=== PATIENT | male | born 1985 | race Caucasian/White ===

== ENCOUNTER 2016-10-10 13:19 | Emergency (ER) | payer BC ==
--- NOTE | 2016-10-10 13:32 | ER Document Report ---
ED Medical Screen (RME) - General Stated Complaint: TESTICULAR PAIN, SWELLING Mode of Arrival: Ambulatory Information source: Patient Notes: Patient presents to the emergency department with complaints of right testicular pain and swelling that started after that the gym. Pain started at Brady Pisano MD consulted per [facility] guidelines. I have greeted and performed a rapid initial assessment of this patient. A comprehensive ED assessment and evaluation of the patient, analysis of test results and completion of the medical decision making process will be conducted by additional ED providers.
[2016-10-10 15:39] LABS: APPEARANCE,URINE CLEAR; BILIRUBIN,URINE NEGATIVE (NEGATIVE); GLUCOSE, URINE NEGATIVE (NEGATIVE); KETONES,URINE 20 mg/dL (NEGATIVE); LEUKOCYTE ESTERASE,URINE SMALL (NEGATIVE); NITRITE,URINE NEGATIVE (NEGATIVE); PROTEIN,URINE NEGATIVE (NEGATIVE); URINE SPECIFIC GRAVITY 1.019; UROBILINOGEN,URINE NEGATIVE mg/dL (<2.0)
[2016-10-10] MEDS ORDERED: CEFTRIAXONE INJ 250 MG VIAL IM ONE (16:15)
[2016-10-10] MEDS ORDERED: AZITHROMYCIN 1 GM SUSP PACKET PO ONE (16:16)
--- NOTE | 2016-10-10 16:38 | ER Document Report ---
ED GI/ - General Chief Complaint: Testicular Pain Stated Complaint: TESTICULAR PAIN, SWELLING Time seen by provider: 16:34 Mode of Arrival: Ambulatory Information source: Patient Notes: This is a 31-year-old man with a history of ulcerative colitis who presents to the emergency room with right testicle pain. Patient states it gradually came on over the last day. He denies any fever. He denies any penile discharge. The patient does admit to anal sex. He denies any pain with bowel movements. Patient gives a history where he had a urologic procedure 5 years ago in [place] and describes that the urethra was "too narrow". He has not had any follow-up with the urologist since then and has not had any problems. TRAVEL OUTSIDE OF THE [place] IN LAST 30 DAYS: No - HPI Patient complains to provider of: Testicular pain Onset: This morning Timing/Duration: Gradual Quality of pain: Dull Severity at maximum: Moderate Severity in ED: Moderate Pain Level: 2 Context: Lifting Location: Right testicle. No: Chest pain, Pelvis Sexual history: Active Associated symptoms: denies: Blood in emesis, Blood in stool, Chest pain, Chills , Coffee ground emesis, Constipation, Lightheaded Exacerbated by: Walking Relieved by: Denies Similar symptoms previously: No Recently seen / treated by doctor: No - Related Data Allergies/Adverse Reactions: No Known Drug Allergies Allergy (Verified 10/10/16 13:30) Past Medical History - General Information source: Patient - Social History Smoking Status: Never Smoker Chew tobacco use (# tins/day): No Frequency of alcohol use: None Drug Abuse: None Lives with: Alone Family History: Reviewed & Not Pertinent Patient has suicidal ideation: No Patient has homicidal ideation: No - Past Medical History Cardiac Medical History: Reports: None Pulmonary Medical History: Reports: None EENT Medical History: Reports: None Neurological Medical History: Reports: None Endocrine Medical History: Reports: None Renal/ Medical History: Reports: Other - Patient did have a history of a urethral procedure 5 years ago. Denies: Hx Peritoneal Dialysis Malignancy Medical History: Reports None GI Medical History: Reports: Hx Ulcerative Colitis - Ulcerative colitis, Other Musculoskeltal Medical History: Reports None Skin Medical History: Reports None Psychiatric Medical History: Reports: None Traumatic Medical History: Reports: None Infectious Medical History: Reports: None Past Surgical History: Reports: Hx Orthopedic Surgery Review of Systems - Review of Systems Constitutional: denies: Chills, Fever EENT: No symptoms reported Cardiovascular: No symptoms reported Respiratory: No symptoms reported Gastrointestinal: No symptoms reported Genitourinary: See HPI Male Genitourinary: No symptoms reported Musculoskeletal: No symptoms reported Skin: No symptoms reported Hematologic/Lymphatic: No symptoms reported Neurological/Psychological: No symptoms reported Physical Exam - Vital signs Vitals: Temp Pulse Resp BP Pulse Ox 98.1 F 77 16 134/80 H 99 10/10/16 13:34 10/10/16 13:34 10/10/16 13:34 10/10/16 13:34 10/10/16 13:34 Notes: Physical exam: GENERAL: 31-year-old man, alert and oriented 3, no acute distress HEAD: Atraumatic, normocephalic. EYES: Pupils equal round and reactive to light, extraocular movements intact, sclera anicteric, conjunctiva are normal. ENT: TMs normal, nares patent, oropharynx clear without exudates. Moist mucous membranes. NECK: Normal range of motion, supple without lymphadenopathy or JVD. LUNGS: Breath sounds clear to auscultation bilaterally and equal. No wheezes rales or rhonchi. HEART: Regular rate and rhythm without murmurs, rubs or gallops. ABDOMEN: Soft, nontender, he is soft in the right lower quadrant, normoactive bowel sounds. No guarding, no rebound. No masses appreciated. Penis: Left testicle and epididymis normal. No inguinal hernia on the left side. The right testicle is mildly erythematous and mildly swollen. There is some tenderness over the testicle itself and the epididymis. Cremasteric reflex is present. There is no obvious L clapper deformity. There is no inguinal hernia palpable on that side. There is no tenderness in the lower abdomen. Rectal: Patient has no external lesions. There is no prostate enlargement, bogginess or tenderness to palpation. EXTREMITIES: Normal range of motion, no pitting or edema. No clubbing or cyanosis. NEUROLOGICAL: Cranial nerves II through XII grossly intact. Normal speech, normal gait. PSYCH: Normal mood, normal affect. SKIN: Warm, Dry, normal turgor, no rashes or lesions noted. Course - Re-evaluation Re-evalutation: 10/10/16 16:37 Testicular ultrasound shows good blood flow to the testes. Mid stream clean catch urine shows 9 white cells with no bacteria. Awaiting serologies. Ceftriaxone and azithromycin given. 10/10/16 17:55 Note: I've reviewed the ultrasound report with the patient, the urine analysis shows some white cells without bacteria. The patient was given ceftriaxone and azithromycin. The patient looks comfortable right now. He has not experienced any nausea or vomiting. I have advised him to follow up with urologist and I' ve printed out a referral number in town. 10/10/16 18:12 - Vital Signs Vital signs: Temp Pulse Resp BP Pulse Ox 98 F 82 16 123/68 100 10/10/16 18:23 10/10/16 18:23 10/10/16 18:23 10/10/16 18:23 10/10/16 18:23 - Laboratory Laboratory results interpreted by me: 10/10/16 15:05 Urine Ketones 20 H Urine Blood MODERATE H Ur Leukocyte Esterase SMALL H - Diagnostic Test Radiology reviewed: Image reviewed, Reports reviewed - Ultrasound shows good blood flow to the testicle. Discharge - Discharge Clinical Impression: Epididymo-orchitis Condition: Stable Disposition: HOME, SELF-CARE Instructions: Epididymitis ([facility]), Anti-Inflammatory Medication ([facility]), Warm Packs ([facility]), Oral Narcotic Medication ([facility]), Doxycycline ([facility]) Additional Instructions: Recommendations: Rest, scrotal elevation often helps. Ibuprofen for pain. Percocet for pain not relieved by the ibuprofen: See the narcotic instruction sheet. Return to the emergency room for fever, worsening pain. Take antibiotics as prescribed: Drink plenty of fluids with it. It is recommended that you follow-up with a urologist: Call the office tomorrow. Tell them the ER doctor wanted just seen in the next few days. Bring a copy of the ultrasound report and urine analysis with you when you go see that doctor. [facility] [place] [facility] [address] [place], [place] [phone] [place] [facility] [address] [facility]. [place], [place] [phone] Prescriptions: Doxycycline Hyclate 100 mg PO BID #20 capsule Oxycodone HCl/Acetaminophen [Percocet 5-325 mg Tablet] 1 - 2 tab PO ASDIR PRN # 25 tablet PRN Reason: Forms: Return to Work
[2016-10-10 17:40] LABS: CHLAM PCR NOT DETECTED (NOT DETECT)
[2016-10-10 18:24] VITALS: BP 123/68
== END 2016-10-10 18:24 | disposition home or self-care (01) ==
LOC: ER 13:19
DX: N45.3 Epididymo-orchitis (principal); N50.819 Testicular pain, unspecified; K51.90 Ulcerative colitis, unspecified, without complications
CPT/HCPCS: 99284; 96372; 81001; 87491; 87591; 76870; 93976; Q0144; J0696